=== PATIENT | female | born 1965 | race Two or more races ===

== ENCOUNTER 2024-10-05 15:14 | Day surgery (SDC) | payer BC, SELFPAY ==
[2024-10-05] VITALS (9 sets, daily range): BP systolic 125–148; BP diastolic 62–81; BMI 19.0
[2024-10-05] MEDS: TYLENOL 1000 MG PO (15:30)
[2024-10-05] MEDS: CELEBREX 200 MG PO (15:30)
[2024-10-05] MEDS: NORMOSOL-R/PLASMALYTE-A 1000 IV (15:44)
[2024-10-05 15:59] LABS: Hematocrit 39.9 % (37.0-47.0); Hemoglobin 13.4 g/dL (12.0-16.0); Mean Corp Hgb Conc. 33.6 g/dL (33.0-37.0); Mean Corpuscular Hgb 30.2 pg (27.0-31.0); Mean Corpuscular Volume 90.1 fL (81.0-99.0); Mean Platelet Volume 11.7 fL (7.4-10.4); Platelet Count 159 10^3/uL (130-400); Red Blood Cell Count 4.43 10^6/uL (4.20-5.40); Red Cell Dist. Width 12.2 % (11.5-14.5); White Blood Cell Count 4.7 10^3/uL (4.8-10.8)
[2024-10-05 16:09] LABS: ALT (SGPT) 21 U/L (0-35); AST (SGOT) 27 U/L (14-36); Albumin 4.4 g/dl (3.5-5.0); Alkaline Phosphatase 59 U/L (38-126); Blood Urea Nitrogen 15 mg/dl (7-17); Calcium 9.3 mg/dl (8.4-10.2); Carbon Dioxide 28 mmol/L (22-30); Chloride 102 mmol/L (98-107); Estimated Creatinine Clearance 72 ml/min; Glucose 82 mg/dl (70-99); Potassium 3.7 mmol/L (3.5-5.1); Sodium 137 mmol/L (135-145); Total Bilirubin 0.5 mg/dl (0.2-1.3); Total Protein 6.5 g/dl (6.3-8.2); eGFR > 60.00
[2024-10-05] MEDS: DILAUDID 0.5 MG IV ×2 (17:49→18:05)
--- NOTE | 2024-10-05 19:58 | SUR.OPER ---
Pt's called, pt's medication sent to the incorrect (and now closed) pharmacy. Reached out to Dr. Lorenzo, reiterated the correct pharmacy as the information given before and in [facility]. And noted that this pharmacy would be closed in 1
hour. (2100)
== END 2024-10-05 19:19 | disposition home or self-care (01) ==
LOC: SDS 15:14
PROVIDERS: ATTENDING PHYSICIAN Orthopaedic Surgery Hand Surgery
DX: S62.306A Unspecified fracture of fifth metacarpal bone, right hand, initial encounter for closed fracture (principal); X58.XXXA Exposure to other specified factors, initial encounter
CPT/HCPCS: 26615; 80053; 85027; 93005